=== PATIENT | female | born 1955 | race Caucasian/White ===

== ENCOUNTER 2022-03-23 10:25 | Outpatient (CLI) | payer MEDICARE | END 2022-03-23 23:59 | disposition home or self-care (01) | LOC: RAD 10:25 | PROVIDERS: ATTEND Physician Assistant | DX: J98.4 Other disorders of lung (principal); I70.0 Atherosclerosis of aorta; K76.0 Fatty (change of) liver, not elsewhere classified; E04.1 Nontoxic single thyroid nodule; I70.8 Atherosclerosis of other arteries; F17.210 Nicotine dependence, cigarettes, uncomplicated | CPT/HCPCS: 71271 ==

== ENCOUNTER 2022-08-31 09:03 | Day surgery (SDC) | payer MEDICARE ==
[~2022-08-31] VITALS: Ht 167.6 cm; Wt 57.2 kg
[2022-08-31] VITALS (15 sets, daily range): BP systolic 120–142; BP diastolic 76–94
[2022-08-31] MEDS ORDERED: ROSU20TA31 PO (10:34)
[2022-08-31] MEDS ORDERED: DILT-115 PO (10:34)
== END 2022-08-31 11:50 | disposition home or self-care (01) ==
LOC: SSTAY O 09:03
PROVIDERS: ATTEND Physician Assistant
DX: E04.1 Nontoxic single thyroid nodule (principal); E78.00 Pure hypercholesterolemia, unspecified; I10 Essential (primary) hypertension; Z79.899 Other long term (current) drug therapy; Z98.890 Other specified postprocedural states
CPT/HCPCS: 10005; A6449